=== PATIENT | female | born 1980 | race Caucasian/White ===

== ENCOUNTER 2022-07-09 16:17 | Emergency (ER) | payer SELFPAY ==
[2022-07-09 16:22] VITALS: BP 145/92; PULSE 90; RESP 18; TEMP 36.6; O2SAT 100; BMI 29.2
--- NOTE | 2022-07-09 17:07 | ED_ITS ---
HPI - URI/Sore Throat <VIOLETA Lilly Last Filed: 07/09/22 17:56> General Chief Complaint: Upper Respiratory Symptoms Stated Complaint: Strep throat Time Seen by Provider: 07/09/22 16:45 Source: patient Mode of arrival: Family Vehicle History of Present Illness HPI Narrative: This is a 42-year-old female presents to the emergency department due to 3 days of sore throat, sinus congestion, and a headache. Denies any nausea, vomiting, chest pain, shortness of breath, or any other concerning signs or symptoms. States at some point she saw ?white spots? in the back of her throat. Related Data Allergies Allergy/AdvReac Type Severity Reaction Status Date / Time No Known Drug Allergies Allergy Verified 07/09/22 17:34 Review of Systems <VIOLETA Lilly Last Filed: 07/09/22 17:56> Review of Systems Narrative: GENERAL: Denies chills, fatigue, malaise, fever, sweats. HEENT: Reports sore throat, sinus congestion, headache RESPIRATORY: Denies dyspnea, cough, wheezing, hemoptysis, sputum. CARDIOVASCULAR: Denies chest pain, palpitations, orthopnea, edema, GASTROINTESTINAL: Denies nausea, vomiting, abdominal pain, diarrhea, constipation, melena. : Denies dysuria, frequency, incontinence, hematuria, urinary retention. MUSCULOSKELETAL: denies weakness, joint pain, or bony pain SKIN: Denies rash, skin lesions, or other NEUROLOGIC: Denies weakness, headache, numbness, change in speech, confusion, seizures, incoordination. PSYCHIATRIC: No concerning psychosocial issues. 12 point review of systems is negative except for those stated above Patient History <VIOLETA Lilly Last Filed: 07/09/22 17:56> Social History Smoking Status: Never smoker Smoking Status: Never smoker alcohol intake frequency: holidays/special occasions only Substance Use Type: marijuana Exam <VIOLETA Lilly Last Filed: 07/09/22 17:56> Narrative Exam Narrative: GENERAL: Well-developed patient, in mild distress. HEAD: Atraumatic. Normocephalic. EYES: Pupils equal round and reactive. Extraocular motions intact. No scleral icterus. No injection or drainage. ENT: Nose without bleeding, purulent drainage. Throat with mild erythema, no tonsillar hypertrophy or exudate. Airway patent. NECK: Trachea midline. Non tender EXTREMITIES: No edema or joint tenderness. BACK: Nontender without deformity or crepitance. No flank tenderness. NEURO: AOx3. SKIN: No rash or erythema of visible areas Initial Vital Signs Initial Vital Signs: Vital Signs Temperature 98 F 07/09/22 16:22 Pulse Rate 90 07/09/22 16:22 Respiratory Rate 18 07/09/22 16:22 Blood Pressure 145/92 H 07/09/22 16:22 Pulse Oximetry 100 07/09/22 16:22 Oxygen Delivery Method 07/09/22 16:22 <Annalisa Holland DO - Last Filed: 07/13/22 03:07> Initial Vital Signs Initial Vital Signs: Vital Signs Temperature 98 F 07/09/22 16:22 Pulse Rate 90 07/09/22 16:22 Respiratory Rate 18 07/09/22 16:22 Blood Pressure 145/92 H 07/09/22 16:22 Pulse Oximetry 100 07/09/22 16:22 Oxygen Delivery Method 07/09/22 16:22 Course <Rylan Vazquez PA-C - Last Filed: 07/09/22 17:56> Orders Ordered: Discontinued Medications Dexamethasone (Dexamethasone 4 Mg Prepack) 1 bottle MISC SEEINSTR ONE Stop: 07/09/22 17:17 Last Admin: 07/09/22 17:34 Dose: Not Given Documented By: MAXIMO Dexamethasone (Dexamethasone 10 Mg/Ml Vial) 10 mg PO NOW ONE Stop: 07/09/22 17:32 Last Admin: 07/09/22 17:36 Dose: 10 mg Documented By: MAXIMO Vital Signs Vital signs: Vital Signs - 8 hr 07/09/22 16:22 Temperature 98 F Pulse Rate 90 Respiratory Rate 18 Blood Pressure 145/92 H Pulse Oximetry 100 Oxygen Delivery Method Room Air <Annalisa Holland DO - Last Filed: 07/13/22 03:07> Orders Ordered: Discontinued Medications Dexamethasone (Dexamethasone 4 Mg Prepack) 1 bottle MISC SEEINSTR ONE Stop: 07/09/22 17:17 Last Admin: 07/09/22 17:34 Dose: Not Given Documented By: MAXIMO Dexamethasone (Dexamethasone 10 Mg/Ml Vial) 10 mg PO NOW ONE Stop: 07/09/22 17:32 Last Admin: 07/09/22 17:36 Dose: 10 mg Documented By: MAXIMO Vital Signs Vital signs: Vital Signs - 8 hr 07/09/22 16:22 Temperature 98 F Pulse Rate 90 Respiratory Rate 18 Blood Pressure 145/92 H Pulse Oximetry 100 Oxygen Delivery Method Room Air MDM - URI/Sore Throat <Rylan Vazquez PA-C - Last Filed: 07/09/22 17:56> Lab Data Labs: Lab Results 07/09/22 Range/Units 16:30 SARS-CoV-2 (PCR) Negative (Negative) Influenza A (RT-PCR) Flu a negative (NEGATIVE) Influenza B (RT-PCR) Flu b negative (NEGATIVE) RSV (PCR) Negative (Negative) Point of Care Testing Rapid Strep A Negative MDM Narrative Medical decision making narrative: This is a 42-year-old female with a 3 day history of sore throat. Rapid strep negative. Suspect viral pharyngitis. COVID, flu, and RSV negative. Oral dexamethasone given for symptomatic relief. Recommended symptomatic treatment. <Annalisa Holland DO - Last Filed: 07/13/22 03:07> Lab Data Labs: Lab Results 07/09/22 Range/Units 16:30 SARS-CoV-2 (PCR) Negative (Negative) Influenza A (RT-PCR) Flu a negative (NEGATIVE) Influenza B (RT-PCR) Flu b negative (NEGATIVE) RSV (PCR) Negative (Negative) Point of Care Testing Rapid Strep A Negative Discharge Plan Departure Patient Disposition: Home Clinical Impression: Acute viral pharyngitis Instructions: DI for Viral Pharyngitis Activity Restrictions/Additional Instructions: Thank you for coming to the [facility] Emergency Department today. The oral dexamethasone given T today should help the throat discomfort. Please use [id number] warm gargles and cough drops to help throat discomfort. This is viral in nature. Your rapid strep was negative. I hope you feel better soon. Stand Alone Forms: Patient Portal/API <Annalisa Holland DO - Last Filed: 07/13/22 03:07> Cosign ED Attending Cosignature Attestation: I was immediately available in the department for consultation. Documentation has been reviewed.
[2022-07-09 17:28] LABS: Influenza A - CEPHEID Flu A NEGATIVE (NEGATIVE); Influenza B - CEPHEID Flu B NEGATIVE (NEGATIVE); Respiratory Syncytial Virus Negative (Negative)
[2022-07-09 17:36] LABS: COVID-19 CEPHEID 4-PLEX PCR Negative (Negative)
[2022-07-09] MEDS: DEXAMETHASONE 10 MG/ML VIAL PO (17:36)
[2022-07-09 18:17] VITALS: BP 128/78; PULSE 78; RESP 18; O2SAT 99
== END 2022-07-09 18:19 | disposition home or self-care (01) ==
PROVIDERS: Emergency Medicine; Emergency Provider Physician Assistant Medical
DX: J02.9 Acute pharyngitis, unspecified (principal); Z20.822 Contact with and (suspected) exposure to COVID-19
CPT/HCPCS: 0241U; 87880; 99283; J1100